=== PATIENT | female | born 1960 | race Two or more races ===

== ENCOUNTER 2017-05-30 05:42 | Inpatient (IN) | payer OTHER ==
[2017-05-17 13:34] LABS: BASOPHILS % (AUTO) 1.8 % (0.0-2.0); EOSINOPHILS % (AUTO) 1.3 % (0.0-3.0); HEMATOCRIT 41.7 % (37.0-47.0); HEMOGLOBIN 13.2 G/DL (12.0-16.0); LYMPHOCYTES % (AUTO) 27.8 % (20.0-45.0); MEAN CORPUSCULAR VOLUME 88 FL (80-99); MONOCYTES % (AUTO) 4.7 % (1.0-10.0); NEUTROPHILS % (AUTO) 64.4 % (45.0-75.0); PLATELET COUNT 330 K/UL (150-450); RED BLOOD COUNT 4.74 M/UL (4.20-5.40); RED CELL DISTRIBUTION WIDTH 13.2 % (11.6-14.8); WHITE BLOOD COUNT 8.3 K/UL (4.8-10.8)
[2017-05-17 13:38] LABS: APPEARANCE,URINE SLIGHTLY CLOUDY; BILIRUBIN, URINE NEGATIVE (NEGATIVE); COLOR,URINE PALE YELLOW; GLUCOSE, URINE (UA) NEGATIVE (NEGATIVE); KETONES,URINE NEGATIVE (NEGATIVE); LEUKOCYTE ESTERASE ,URINE 1+ (NEGATIVE); NITRITE,URINE NEGATIVE (NEGATIVE); PH,URINE 6 (4.5-8.0); PROTEIN,URINE NEGATIVE (NEGATIVE); UROBILINOGEN,URINE NORMAL MG/DL (0.0-1.0)
[2017-05-17 13:49] LABS: INR 0.9 (0.9-1.1)
[2017-05-17 14:12] LABS: ALANINE AMINOTRANSFERASE 19 U/L (12-78); ALBUMIN 3.9 G/DL (3.4-5.0); ALKALINE PHOSPHATASE 103 U/L (46-116); ANION GAP 9 mmol/L (5-15); ASPARTATE AMINO TRANSFERASE 22 U/L (15-37); BILIRUBIN,TOTAL 0.4 MG/DL (0.2-1.0); BLOOD UREA NITROGEN 17 mg/dL (7-18); CALCIUM 9.3 MG/DL (8.5-10.1); CARBON DIOXIDE 27 MMOL/L (21-32); CHLORIDE 102 MMOL/L (98-107); POTASSIUM 3.9 MMOL/L (3.5-5.1); SODIUM 138 MMOL/L (136-145)
--- NOTE | 2017-05-17 18:28 | Diagnostic Imaging Report ---
Indication: Cough Technique: XRAY Chest 2v Comparison: None Findings: Heart size and mediastinal contours are within normal limits. There is no focal airspace consolidation, pleural effusion or pneumothorax. No acute osseous abnormality seen. Surgical clips noted in the right upper quadrant. Impression: No radiographic evidence of acute cardiopulmonary disease.
[2017-05-30] VITALS (15 sets, daily range): BP systolic 99–133; BP diastolic 54–73
[~2017-05-30] VITALS: Ht 160 cm; Wt 79.4 kg
[2017-05-30] MEDS ORDERED: METFORMIN HCL500 M1 ORAL (06:42)
[2017-05-30] MEDS ORDERED: FLONASE SENSIM9.9 ML NS (06:42)
[2017-05-30] MEDS ORDERED: AMBIEN10 MG ORAL (06:42)
[2017-05-30] MEDS ORDERED: PRILOSEC OTC20 MG ORAL (06:42)
[2017-05-30] MEDS ORDERED: PROAIR HFA8.5 GM INH (06:42)
[2017-05-30] MEDS ORDERED: COLACE100 MG ORAL (06:42)
[2017-05-30] MEDS ORDERED: ZYRTEC10 MG ORAL (06:42)
[2017-05-30] MEDS ORDERED: ceFAZolin sod 2 GM in D5W 110 ML IVPB ONE (07:00)
--- NOTE | 2017-05-30 07:04 | Anethesia Preoperative Eval ---
Anesthesia Pre-op PMH/ROS General Date of Evaluation: May 30, 2017 Time of Evaluation: 08:06 Anesthesiologist: Ezekiel ASA Score: ASA 3 Mallampati Score Class I : Soft palate, uvula, fauces, pillars visible Class II: Soft palate, uvula, fauces visible Class III: Soft palate, base of uvula visible Class IV: Only hard plate visible Mallampati Classification: Class II Surgeon: Tila Diagnosis: Back Pain Surgical Procedure: L5-S1 Redo Laminectomy, Remove Hardware Anesthesia History: none Family History: no anesthesia problems Allergies: Coded Allergies: CODEINE (Verified Allergy, Severe, Shortness of Breath;itching, 05/30/17) MEPERIDINE (Verified Allergy, Severe, Itching, 05/30/17) Medications: see eMAR Past Medical History Pulmonary: Reports: asthma Gastrointestinal/Genitourinary: Reports: GERD HEENT: Reports: cataract (L), cataract (R) Other: obesity PSxH Narrative: Cholecystectomy, Abdominoplasty, Umbilical Hernia Repair, C/S Sx, L/S Sx, Breast Aug, Hysteroscopy, Laparoscopy Anesthesia Pre-op Phys. Exam Physician Exam Last Vital Signs Date Time Temp Pulse Resp B/P (MAP) Pulse Ox O2 Delivery O2 Flow Rate FiO2 05/30/17 06:14 97.1 65 18 127/73 98 Room Air Constitutional: NAD Neurologic: CN 2-12 intact Cardiovascular: RRR Respiratory: CTA Gastrointestinal: S/NT/ND Airway Exam Mallampati Score: Class II MO: limited ROM: limited Teeth: missing, intact Anesthesia Pre-op A/P Risk Assessment & Plan Assessment: ASA 3 Plan: GA, BIS, GlideScope Status Change Before Surgery: No Pre-Antibiotics Dru Grams Ancef IV Given Within 1 Hr of Incision: Yes Time Given: 08:26 Fab Falcon MD May 30, 2017 07:04
[2017-05-30] MEDS ORDERED: LR 1000ml 1,000 ML IVLG SCH (07:05)
--- NOTE | 2017-05-30 07:05 | Immediate Post-Op Evaluation ---
Immediate Post-Op Evalulation Immediate Post-Op Evalulation Procedure: L5-S1 Redo Laminectomy, Remove Hardware Date of Evaluation: May 30, 2017 Time of Evaluation: 12:20 IV Fluids: 1000 LR Blood Products: 0 Estimated Blood Loss: 100 Urinary Output: 300 Blood Pressure Systolic: 132 Blood Pressure Diastolic: 67 Pulse Rate: 84 Respiratory Rate: 16 O2 Sat by Pulse Oximetry: 100 Temperature (Fahrenheit): 98.4 Pain Score (1-10): 3 Nausea: No Vomiting: No Complications 0 Patient Status: awake, reacts, patent, extubated, none Hydration Status: adequate Dru Grams Ancef IV Given Within 1 Hr of Incision: Yes Time Given: 08:26 Fab Falcon MD May 30, 2017 07:05
[2017-05-30] MEDS ORDERED: Midazolam 2mg/2ml Inj IVP PRN (07:15)
[2017-05-30] MEDS ORDERED: DiphenhydrAMINE 50mg/ml Inj IVP PRN (07:15)
[2017-05-30] MEDS ORDERED: LORazepam Inj 2mg/ml 1ml IV PRN (07:15)
[2017-05-30] MEDS ORDERED: Ketorolac 30mg Inj IV PRN ×2 (07:15)
[2017-05-30] MEDS ORDERED: Acetaminophen (Non formulary) 100 ML IV ONE (07:15)
[2017-05-30] MEDS ORDERED: Labetalol 5mg/ml 20ml vial IV PRN (07:15)
[2017-05-30] MEDS ORDERED: fentaNYL 100 mcg/2 mL IV PRN (07:15)
[2017-05-30] MEDS ORDERED: Atropine Inj 1mg/10ml Syr IV PRN (07:15)
[2017-05-30] MEDS ORDERED: Hydromorphone 0.5mg/0.5ml inj IVP PRN (07:15)
[2017-05-30] MEDS ORDERED: Thrombin 5000 units TOPIC ONE ×2 (07:27→09:27)
[2017-05-30] MEDS ORDERED: Lidocaine 1% 10mg/ml/Epi 0.005mg/ml 30ml vial INJ ONE (07:27)
[2017-05-30] MEDS ORDERED: Vancomycin 1gm inj IVPB ONE (07:27)
[2017-05-30] MEDS ORDERED: Thrombin 5000 units spray kit TOPIC ONE (07:28)
[2017-05-30] MEDS ORDERED: Gelfoam Absorbable 1gm powder pkt TOPIC ONE (07:28)
[2017-05-30] MEDS ORDERED: Ropivacaine 5mg/ml Vial 30ml INJ ONE (07:28)
[2017-05-30] MEDS ORDERED: Bacitracin 50000 Units Vial ONE (07:28)
[2017-05-30] MEDS ORDERED: fentaNYL 100 mcg/2 mL IV ONE (08:00)
[2017-05-30] MEDS ORDERED: LR 1000ml ONE (08:00)
[2017-05-30] MEDS ORDERED: Sterile Water Irrig 1000ml IRRIG ONE (08:00)
[2017-05-30] MEDS ORDERED: Dexamethasone 4mg/ml vial ONE (08:00)
[2017-05-30] MEDS ORDERED: Propofol 1,000mg/ 100ml btl IV ONE (08:00)
[2017-05-30] MEDS ORDERED: NS Irrig 1000ml ONE (08:00)
[2017-05-30] MEDS ORDERED: Lidocaine 1% MPF 10mg/ml 5ml ONE (08:00)
[2017-05-30] MEDS ORDERED: Zemuron 50mg/5ml Inj IV ONE (08:00)
--- NOTE | 2017-05-30 08:17 | Pre-Procedure Note/Attestation ---
Pre-Procedure Note/Attestation Complete Prior to Procedure Procedure Narrative: HWR and skeletonization of nerve roots l5s1 Indications for Procedure Pre-Operative Diagnosis: sp spinal fusion L5s1 with radiculopathy Attestation I attest that I discussed the nature of the procedure; its benefits; risks and complications; and alternatives (and the risks and benefits of such alternatives ), prior to the procedure, with the patient (or the patient's legal entry level account representative). I attest that, if there was a reasonable possibility of needing a blood transfusion, the patient (or the patient's legal entry level account representative) was given the [facility] standardized written summary, pursuant to the Deion Beclabito Blood Safety Act ([place] Health and Safety Code # 1645, as amended). I attest that I re-evaluated the patient just prior to the surgery and that there has been no change in the patient's H&P, except as documented below: EVAN RINCON May 30, 2017 08:17
[2017-05-30] MEDS ORDERED: Bupivacaine 0.5% Inj 30 ml vial INJ ONE (08:56)
[2017-05-30] MEDS ORDERED: traMADol 50mg tab ORAL PRN (11:30)
--- NOTE | 2017-05-30 11:43 | Brief Operative Note ---
Immediate Post Operative Note Operative Note Pre-op Diagnosis: sp spinal fusion L5s1 with radiculopathy Procedure: HWR l5s1, redo laminectomy r L5s1 with lofton body resection, L pedicleectomy and skeletinozation nerve root L5s1 Post-op Diagnosis: same as pre-op Findings: consistent w/pre-op dx studies Surgeon: reji Svp Operations: jose BARAJAS Anesthesiologist: christie Anesthesia: general Specimen: yes - explant Complications: none Condition: stable Fluids: 1000 Estimated Blood Loss: volume - 100 Drains: hemovac Implant(s) used?: No EVAN RINCON May 30, 2017 11:43
[2017-05-30] MEDS ORDERED: Milk of Magnesia 30ml Ud ORAL PRN ×2 (14:00→18:15)
[2017-05-30] MEDS ORDERED: HYDROmorphone 1mg/ml Carpuject SUBQ PRN (14:00)
[2017-05-30] MEDS ORDERED: Norco 5mg/325mg tab ORAL PRN (14:00)
[2017-05-30] MEDS ORDERED: HYDROcodone/Acetamin 7.5/325 tab ORAL PRN ×2 (14:00)
--- NOTE | 2017-05-30 15:04 | Diagnostic Imaging Report ---
Indication: Right lower extremity pain, intraoperative imaging for hardware removal Technique: Intraoperative images Comparison: none Findings: No preintervention images are available. Final images demonstrate a surgical plate and a single screw projected at the L5-S1 level anteriorly. Impression: Intraoperative imaging, as described
[2017-05-30] MEDS: D5 1/2NS 1,000 ML IV SCH (15:12)
[2017-05-30] MEDS: ceFAZolin sod 1 GM in D5W 55 ML IV SCH (16:29)
--- NOTE | 2017-05-30 17:30 | Operative Note - Dictated ---
DATE OF OPERATION: 05/30/2017 SURGEON: Miguel Adorno M.D. LASER ENGRAVER: Chuy Ramirez PA-C. ANESTHESIOLOGIST: Fab Falcon M.D. ANESTHESIA TYPE: General endotracheal anesthesia. PREOPERATIVE DIAGNOSES: 1. Status post prior spinal fusion, anterior posterior L5-S1 with radiculopathy. 2. Bony overgrowth within the neural foramen, left side L5-S1. 3. Lateral recess and foraminal stenosis, right L5-S1. 4. Spondylolisthesis with spondylolysis. POSTOPERATIVE DIAGNOSES: 1. Status post prior spinal fusion, anterior posterior L5-S1 with radiculopathy. 2. Bony overgrowth within the neural foramen, left side L5-S1. 3. Lateral recess and foraminal stenosis, right L5-S1. 4. Spondylolisthesis with spondylolysis. PROCEDURES: 1. Removal of hardware L5-S1. 2. Redo laminectomy right side L5-S1 with Hawk body resection. 3. Left-sided redo laminectomy, subtotal pediculectomy (L5), and foraminotomy L5-S1. 4. Partial corpectomy through a transpedicular approach left L5-S1. 5. Use of fluoroscopy for localization. 6. Use of operating microscope. 7. Neurodiagnostic monitoring. ESTIMATED BLOOD LOSS: 100 mL. COMPLICATIONS: None. HEMOVAC: Hemovac x1 placed. INDICATIONS: The patient is a very pleasant woman with status post anterior posterior fusion L5-S1. She developed a bony overgrowth within the neural foramen, left side L5-S1. She has radicular pain both lower extremities. There is lateral recess stenosis, right L5-S1. She was counseled with regards to her alternatives and she elected to proceed with surgical decompression and hardware removal. The patient understood, wished to proceed. INTRAOPERATIVE FINDINGS: Excessive amount of very dense and tough scar formation. RISK NOTE: The patient was explained in detail risks and benefits of surgery to include, but not be limited to, those of bleeding, infection, damage to nerves, vessels, tendons, anesthetic risk, allergic reaction, aspiration, and possibly . The patient understood and wished to proceed. OPERATIVE PROCEDURE IN DETAIL: The patient was taken to the operative suite. After general endotracheal anesthesia was obtained, she was turned prone onto a radiolucent frame with the Corey frame. Please note that a Leonard catheter was placed post intubation. All bony prominences were well padded. The back was prepped and draped in usual sterile fashion. Prior back incision was re-incised. Excessive amount of scar tissue formation was noted, which made the exposure very difficult. At this point, an oblique approach was then obtained as the normal anatomic landmarks could not be appreciated. The oblique exposure was taken to the area of the pedicle screw heads. Bilateral pedicle screw heads were then dissected free, visualized and were systematically removed by removing the locking cap the remy and subsequently the L5 and S1 rods bilaterally. At this point, the right side was packed off. Attention was turned onto the left side. An excessive amount of scar was encountered in the area of the lateral recess. The bony landmarks of the L5 pedicle were then chosen and circumferentially the pedicle was dissected free of scar material. At this point, dissection was carried out along the lateral, medial, and inferior portion of the pedicle using meticulous micro technique. The pedicle was then drilled down and essentially collapsed (eggshelled) in onto itself. Therefore, through a transpedicular approach, the pedicle of L5 allowed us to then identify a portion of the vertebral body and from an anterior to the nerve root approach used a down pushing curette and removed the bone graft given the area of the neural foramen. The exiting nerve roots L5 on the left was probed free. Medially it was still encased in dense excess amount of scar, however, it was felt to be dangerous to mobilize the scar further medially. At this point, once satisfied with the decompression, copious irrigation was performed. FloSeal was applied. At this point, the area was packed off. Attention was turned towards the right side and the scar tissue was mobilized off of the remnant of the lamina. The lamina on the right side was inspected and was noted to be hypermobile, which likely was the cause of her pain. This was consistent with prior pars defect. At this point, the lamina was thinned out using a high-speed drill and with meticulous micro technique, the plane off of the dura was identified and elevated. The lamina as well as the Hawk body was removed in a very meticulous and piecemeal fashion. Once all the foraminotomy on the right as well as laminectomy on the right was performed, copious irrigation was performed. Valsalva demonstrated no evidence of dural leak. Finally, the decision was made to close after meticulous hemostasis was obtained. Hemovac drain was placed deep to the fascia. The fascia was repaired using #1 Vicryl. Subcutaneous closure using 2-0 Vicryl. Dermabond and sterile dressing. Upon completion, the patient was awaiting extubation at the time of this dictation. Sponge and needle counts were correct. [facility] Lexi Adorno DR: MEGAN JOB#: [id number] CC: SAL
[2017-05-30] MEDS: Docusate Sod/Senna tab ORAL SCH (17:57)
[2017-05-30] MEDS ORDERED: Chloraseptic Spray 20mL Bottle ORAL ONE (18:10)
[2017-05-30] MEDS ORDERED: HYDROcodone/Acetamin 10/325 tab ORAL PRN ×2 (18:15→18:45)
[2017-05-30] MEDS ORDERED: Chloraseptic Spray 20mL Bottle ORAL PRN (18:15)
[2017-05-30] MEDS: HYDROcodone/Acetamin 10/325 tab ORAL PRN (21:00)
[2017-05-31] VITALS: BP 90/50
[2017-05-31] MEDS: ceFAZolin sod 1 GM in D5W 55 ML IV SCH ×2 (00:37→09:32)
[2017-05-31] MEDS: D5 1/2NS 1,000 ML IV SCH ×2 (00:38→09:31)
[2017-05-31] MEDS: Zolpidem 5mg tab ORAL PRN (00:41)
--- NOTE | 2017-05-31 01:00 | Consultation ---
DATE OF CONSULTATION: 05/30/2017 CONSULTING PHYSICIAN: Lenny Sofia M.D. REFERRING PHYSICIAN: Miguel Adorno M.D. REASON FOR CONSULTATION: Acute pain consult. HISTORY OF PRESENT ILLNESS: Dear Dr. Miguel Adorno: Thank you kindly for consulting me to evaluate and render an opinion as to how to proceed in the management of the patient's acute postoperative lumbar spine pain after her revision lumbar spine instrumentation surgery today. The patient is a 56-year-old woman, who complained of significant postoperative pain after her revision lumbar spine surgery today with removal of hardware and exploration. The patient has a long history of lumbar spine pain after her work-related injury. She also has fibromyalgia and migraine headaches. You consulted me for acute pain consultation. I saw the patient at the bedside where I performed a detailed history and physical examination. I spent over 75 minutes in consultation with an additional 30 minutes in medical record review. I reviewed multiple records from today's date of surgery at [facility], 05/30/2017, including consent for surgical treatment, consent for anesthesia, consent for blood products, medication administration record, medication reconciliation order form, PACU record, PACU orders, guidelines for prophylactic antibiotics, guidelines for DVT prophylaxis, postoperative spine surgical orders, and postoperative surgery report by Dr. Adorno, anesthesia record, pre and post anesthesia evaluation record. Further record review include utilization review and surgical authorization by the insurance carrier, [facility]. Further record review included preoperative history and physical by Dr. Keene, 05/17/2017, along with diagnostic testing including a 12-lead EKG, chest x-ray, and laboratory studies. PAST MEDICAL HISTORY: 1. Acute postoperative lumbar spine pain, status post lumbar spine revision surgery with instrumentation by Dr. Miguel Adorno, 05/2017. 2. Work-related injury. 3. Mild obesity. 4. Fibromyalgia. 5. Migraine headaches. PAST SURGICAL HISTORY: 1. Previous lumbar spine surgery with instrumentation. 2. Cervical spine instrumentation surgery x2 in 2000 and 2002. 3. section x2. 4. Cholecystectomy. 5. Umbilical hernia repair. 6. Ventral hernia repair. 7. Nasal sinus surgery 25 years ago. FAMILY HISTORY: Hypertension, diabetes, and coronary artery disease. SOCIAL HISTORY: The patient quit tobacco over 30 years ago. She drinks alcohol socially. She is a daily coffee drinker. ALLERGIES: Codeine, gabapentin, and Lyrica. The patient did have a questionable history of hydrocodone allergy, with mild itching. The patient has been tolerating hydrocodone without any adverse side effects. MEDICATIONS: Current medications at home, NSAIDs, Ambien, Flonase, metformin, Prilosec, inhalers, Zyrtec, and Voltaren. REVIEW OF SYSTEMS: Per Dr. Keene. PHYSICAL EXAMINATION: VITAL SIGNS: Age 56, height 5 feet 3 inches, weight 180 pounds, body-mass index 32. She is afebrile, pulse 68, respirations 20, blood pressure 119/67, and oxygen saturation 99% on room air. HEENT: Normocephalic, atraumatic. NEUROLOGIC: Grossly intact with 5/5 dorsiflexion, 5/5 plantar flexion in the bilateral lower extremity. ABDOMEN: Obese. Positive bowel sounds. BACK: Lumbar spine is pain by incision area with minimal paraspinal muscle spasms appreciated. The Hemovac drain holding suction. CARDIOPULMONARY: Within normal limits, and per Dr. Keene. GENITOURINARY: Deferred. LABORATORY AND DIAGNOSTIC DATA: Diagnostic testing, a 12-lead EKG, normal sinus rhythm, ventricular rate 64. Preoperative chest x-ray shows no acute cardiopulmonary disease, 05/17/2017. Laboratory studies on 05/17/2017 shows white count 8, hematocrit 42, and platelets 330,000. Sodium 138, potassium 3.9, chloride 102, bicarbonate 27, BUN 17, creatinine 1.0, glucose 122, and calcium 9.3. Total bilirubin 0.4, AST 22, ALT 19, total protein 7.9, albumin 3.9, alkaline phosphatase 103. INR 0.9, PTT 28. Urinalysis is negative. IMPRESSION: 1. Acute postoperative lumbar spine pain, status post lumbar spine revision surgery with instrumentation by Dr. Miguel Adorno, 05/2017. 2. Work-related injury. 3. Mild obesity. 4. Fibromyalgia. 5. Migraine headaches. TREATMENT RECOMMENDATIONS: I have devised the following analgesic plan to help with her pain control postoperatively. Despite her multiple allergies and previous concerns for intolerance for hydrocodone, the patient has tolerated hydrocodone with only mild itching. I have added p.r.n. doses of Atarax as well as Benadryl as anti-itching agents and I will continue hydrocodone dosing with 10/325 tablets one orally every three hours p.r.n. for mild pain. The patient states that muscle relaxants have not been effective for her as they cause intolerable disorientation. I would hold off on the class of muscle relaxants at this time. She does have history of fibromyalgia, which often causes increased discomfort postoperatively and thus slow recovery. She has chronic headaches. I have added a dose of Fioricet one tablet orally every eight hours p.r.n. for headache complaint. She is a daily coffee drinker and I encouraged her to have her daily drink of coffee to avoid any caffeine-withdrawal headache symptoms, which may cloud other postoperative complaints. I have ordered a dose of subcutaneous Dilaudid 1 mg subcutaneously every three hours p.r.n. for severe breakthrough pain. The patient does admit to opioid-induced constipation after her previous surgeries. She has been started on Yue-Colace already and I have ordered p.r.n. dose of milk of magnesia, and I have asked the nursing team to place prune juice at the bedside. I have asked the nurses to place a bottle of Chloraseptic spray at the bedside as well to help with postoperative sore throat complaints after her general anesthesia intubation. She does use Ambien often at night and I have restarted 10 mg dose nightly p.r.n. for insomnia. I will try to hold off on the class of benzodiazepine at this time in this moderately obese woman, to avoid potentiation for respiratory depression, which may develop while already on opioid or narcotics. I did provide the daughter a prescription for [place] #60 tablets for outpatient usage and I have asked her to drop it off at a local pharmacy as soon as available, to avoid any delays including the prescription, which might delay her hospital discharge. I have ordered incentive spirometer to encourage good pulmonary toilet and help reduce the risk of postoperative pneumonia and atelectasis. The patient does have sequential compression pneumatic devices in place for DVT prophylaxis. Lenny Sofia M.D. DR: ROSA JOB#: [id number] CC:
[2017-05-31 04:00] VITALS: BP 101/56
[2017-05-31] MEDS: HydrOXYzine tab 25 MG TAB ORAL PRN ×3 (07:05→23:40)
[2017-05-31] MEDS: HYDROmorphone 1mg/ml Carpuject SUBQ PRN ×2 (07:06→20:40)
[2017-05-31 08:39] VITALS: BP 98/49
--- NOTE | 2017-05-31 08:43 | Orthopedic Spine Progress Note ---
Ortho Spine - Progress Note Subjective Symptoms: c/o post-op back pain, improved - as compared to pre-op Objective Vital Signs: Last 24 Hour Vital Signs Date Time Temp Pulse Resp B/P (MAP) Pulse Ox O2 Delivery O2 Flow Rate FiO2 05/31/17 08:39 97.2 52 18 98/49 93 Room Air 05/31/17 07:36 97.7 05/31/17 04:00 97.7 63 18 101/56 97 Room Air 05/31/17 00:00 97.8 52 18 90/50 98 Room Air 05/30/17 22:00 98.4 05/30/17 20:00 98.4 51 18 99/54 97 Room Air 05/30/17 16:30 98.0 68 20 119/67 99 Room Air 05/30/17 14:30 97.0 66 18 118/67 99 Room Air 05/30/17 14:10 98.0 05/30/17 14:00 68 17 112/64 99 Nasal Cannula 3.0 05/30/17 13:30 98.1 64 20 115/67 98 05/30/17 13:29 98.0 70 18 110/63 99 Nasal Cannula 3.0 05/30/17 13:20 65 15 114/61 99 Nasal Cannula 3.0 05/30/17 13:10 69 16 112/55 99 Nasal Cannula 3.0 05/30/17 13:00 70 15 110/54 99 Nasal Cannula 3.0 05/30/17 12:45 74 17 107/59 99 Nasal Cannula 3.0 05/30/17 12:30 62 18 110/56 99 Simple Mask 6.0 05/30/17 12:20 72 12 132/70 99 Simple Mask 6.0 05/30/17 12:15 87 15 130/67 97 Simple Mask 6.0 05/30/17 12:10 84 16 100 05/30/17 12:09 98.4 91 13 133/68 97 Simple Mask 6.0 I&O: Intake and Output 05/30/17 05/31/17 19:00 07:00 Intake Total 1715 ml 1195 ml Output Total 460 ml Balance 1255 ml 1195 ml Intake Oral 360 ml 240 ml IV Total 1355 ml 955 ml Output Urine Total 300 ml Drainage Total 60 ml Estimated Blood Loss 100 ml # Voids 1 4 Wound: clean, dry, intact Drains: hemovac Neuro Status: normal Assessment Procedure Performed: HWR l5s1, redo laminectomy r L5s1 with lofton body resection, L pedicleectomy and skeletinozation nerve root L5s1 Plan Plan: PT, pain management, continue drain, discharge plan EVAN RINCON May 31, 2017 08:43
[2017-05-31] MEDS: Docusate Sod/Senna tab ORAL SCH ×2 (08:58→17:40)
--- NOTE | 2017-05-31 10:55 | 48 Hour Post Anesthesia Eval ---
Post Anesthesia Evaluation Procedure: L5-S1 Redo Laminectomy, Remove Hardware Date of Evaluation: May 31, 2017 Time of Evaluation: 10:53 Blood Pressure Systolic: 98 0: 49 Pulse Rate: 52 Respiratory Rate: 18 Temperature (Fahrenheit): 97.2 O2 Sat by Pulse Oximetry: 93 Airway: patent Nausea: No Vomiting: No Pain Intensity: 2 Hydration Status: adequate Cardiopulmonary Status: Stable Mental Status/LOC: patient returned to baseline Follow-up Care/Observations: 0 Post-Anesthesia Complications: 0 Follow-up care needed: N/A Fab Falcon MD May 31, 2017 10:55
[2017-05-31 12:00] VITALS: BP 93/54
[2017-05-31] MEDS: metFORMIN 500mg tab ORAL SCH (12:49)
[2017-05-31] MEDS: HYDROcodone/Acetamin 10/325 tab ORAL PRN (15:26)
[2017-05-31] MEDS ORDERED: Magnesium Citrate Liq Btl ORAL ONE (15:33)
[2017-05-31 16:00] VITALS: BP 94/58
--- NOTE | 2017-05-31 17:30 | Progress Note ---
DATE: 05/31/2017 ACUTE PAIN MANAGEMENT PHYSICIAN PROGRESS NOTE Medication administration record reviewed. Medications include Yue-Colace, Protonix, Zyrtec, Glucophage. P.r.n. medications include Tylenol, Fioricet, Benadryl, Atarax, Chloraseptic, Catapres, Tyrone, Dilaudid, milk of magnesia, Mylanta, Zofran, Phenergan, and Ambien. LABORATORY STUDIES: No interval laboratory studies. VITAL SIGNS: Pain level 6/10 on the visual analog pain scale, afebrile, pulse 63, respirations 20, blood pressure 93/54, and oxygen saturation 95% on room air. I saw the patient at bedside with the nurse RN, Licha. The surgeon, Dr. Adorno, had evaluated the patient earlier this morning. The patient has been ambulating greater than 200 feet. Her pain is relatively well controlled alternating between the p.r.n. doses of oral Tyrone and subcutaneous Dilaudid. The patient is having some side effects of itching. However, the Atarax and Benadryl are helping somewhat. The patient does have a history of significant constipation with opioids, and this hospitalization is no different. She has already been drinking significant prune juice, along with the ordered Yue-Colace from the surgeon. I have instructed the nurse to dose the patient with Dulcolax suppository and to leave the bottle of magnesium citrate at the bedside and hopefully, these agents will effect a bowel movement with time without the need for a Fleet enema. The patient denies any headache symptoms. I left the prescription with the patient's daughter late last night for outpatient Tyrone. The daughter already dropped it off at a local pharmacy to expedite dispensing. I will defer the patient's diabetic medications to Dr. Keene, and continue her current analgesic regimen. Her Hemovac drains remained in place, and we will re-evaluate the output in the morning. Lenny Sofia M.D. DR: CHIVO JOB#: [id number] CC:
[2017-05-31 20:06] VITALS: BP 97/55
[2017-05-31] MEDS ORDERED: Magnesium Citrate Liq Btl ORAL PRN (21:00)
[2017-06-01 00:40] VITALS: BP 87/58
[2017-06-01 01:18] VITALS: BP 109/60
[2017-06-01] MEDS: Zolpidem 5mg tab ORAL PRN (01:28)
[2017-06-01 04:00] VITALS: BP 104/71
[2017-06-01] MEDS: HYDROmorphone 1mg/ml Carpuject SUBQ PRN ×2 (04:40→11:32)
[2017-06-01 08:00] VITALS: BP 91/61
[2017-06-01] MEDS ORDERED: NORCO 10-325 T1 EACH ORAL (09:22)
[2017-06-01] MEDS: metFORMIN 500mg tab ORAL SCH (09:30)
--- NOTE | 2017-06-01 09:35 | Orthopedic Spine Progress Note ---
Ortho Spine - Progress Note Subjective Symptoms: c/o post-op back pain, improved - as compared to pre-op Objective Vital Signs: Last 24 Hour Vital Signs Date Time Temp Pulse Resp B/P (MAP) Pulse Ox O2 Delivery O2 Flow Rate FiO2 06/01/17 08:00 99.0 84 19 91/61 96 06/01/17 06:32 98.3 06/01/17 04:00 99.1 93 19 104/71 93 06/01/17 01:18 109/60 06/01/17 00:40 98.3 65 18 87/58 99 05/31/17 20:06 97.6 62 18 97/55 100 05/31/17 16:25 97.3 05/31/17 16:00 98.0 59 20 94/58 95 Room Air 05/31/17 16:00 95 Room Air 05/31/17 12:00 97.3 63 20 93/54 95 Room Air 05/31/17 12:00 95 Room Air 05/31/17 10:55 52 18 93 I&O: Intake and Output 05/31/17 06/01/17 19:00 07:00 Intake Total 1540 ml 840 ml Output Total 40 ml 40 ml Balance 1500 ml 800 ml Intake Oral 840 ml 840 ml IV Total 700 ml Drainage Total 40 ml 40 ml # Voids 4 # Bowel Movements 1 Wound: clean, intact Drains: none Neuro Status: normal Assessment Procedure Performed: HWR l5s1, redo laminectomy r L5s1 with loftno body resection, L pedicleectomy and skeletinozation nerve root L5s1 Plan Plan: PT, pain management, discharge to home EVAN RINCON Jun 01, 2017 09:35
[2017-06-01] MEDS: HydrOXYzine tab 25 MG TAB ORAL PRN (11:32)
[2017-06-01 12:00] VITALS: BP 103/65
[2017-06-01] MEDS ORDERED: D5 1/2NS 1000ml IV ONE (13:26)
--- NOTE | 2017-06-01 15:00 | Progress Note ---
DATE: 06/01/2017 ACUTE PAIN MANAGEMENT PHYSICIAN PROGRESS NOTE MEDICATIONS: Medication administration record reviewed. Medications include Ambien, Yue-Colace, Phenergan, Chloraseptic spray, Protonix, Zofran, Glucophage, milk of magnesia, magnesium citrate, Toradol, Atarax, Dilaudid, Murphy, Benadryl, Catapres, Zyrtec, Dulcolax, Mylanta, Fioricet, and Tylenol. LABORATORY STUDIES: No interval laboratory studies. VITAL SIGNS: Within normal limits. Afebrile, pulse 93, respirations 18, blood pressure 104/71, and oxygen saturation 93% on room air. I saw the patient at the bedside with the nurse RNeJnnifer. The patient has been doing extremely well. Yesterday, she had a very large bowel movement after using the laxatives, which I ordered including magnesium citrate. Her itching complaints still remain mild. The patient asked for a prescription for Atarax, I recommended her to discontinue the outpatient [id number] Benadryl. I did leave the patient with a prescription for Murphy already, which her daughter has dropped-off at local pharmacy. In the hospital, the patient continues to request breakthrough Dilaudid intermittently. She has no nausea symptoms. She denies any shortness of breath or chest pain. The patient is ambulating quite well. She is compliant using her incentive spirometer. The patient denies any headaches or anxiety. Output from the indwelling lumbar spine drain catheter overnight was 40 mL. With the nurse RNJennifer at the bedside, the patient was turned to the left lateral decubitus position. I removed the lumbar spine dressing revealing lumbar spine incision clean and dry with Telfa in-place. I examined the indwelling lumbar spine drain catheter, drain-site. The area was clean and dry with no evidence for erythema or exudate. The Steri-Strips holding in the indwelling drain were removed. Then, at the end-expiration with the Hemovac drain taken off of suction, I personally removed the indwelling lumbar spine drain catheter. The tip was intact. Alcohol swab was applied generously to the drain hole site. Sterile 2 x 2 gauze was then applied over the drain site with clear Tegaderm dressings over the drain hole site and the incision. There were no complications. Lenny Sofia M.D. DR: YOVANY JOB#: [id number] CC:
--- NOTE | 2017-06-02 10:48 | Discharge Summary ---
Discharge Summary Hospital Course Date of Admission May 30, 2017 at 05:42 Date of Discharge Jun 01, 2017 at 13:27 Admitting Diagnosis HPI Graciela Spears is a 56 year old female who was admitted on May 30, 2017 at 05: 42 for L5-S1 Spondylolisthesis/ Labs, Chest X Ray Hospital Course [id number] Discharge Discharge Disposition Patient was discharged to Home (01) Discharge Diagnoses: Evonne Francis NP Jun 02, 2017 10:48
--- NOTE | 2017-06-02 22:30 | Discharge Summary 2 SIG ---
DATE OF ADMISSION: 05/30/2017 DATE OF DISCHARGE: 06/01/2017 VEHICLE OPERATOR TECHNICIAN: Lenny Sofia M.D. BRIEF HOSPITAL COURSE: The patient is a 56-year-old female who had a long history of lumbar spine pain after a work-related injury. She is status post anterior posterior fusion L5-S1. 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 There is lateral recess stenosis on the right L5-S1. She was counseled with regards to her alternatives and she elected to proceed with surgical decompression and hardware removal. She was admitted on 05/30/2017 and underwent removal of hardware on L5-S1 with a redo laminectomy on the right L5-S1 with Hawk body resection. Postoperatively, she was seen by Dr. Sofia for pain management. She has multiple allergies to pain medication. She had previous concerns for intolerance for hydrocodone, however, was able to tolerate only with mild itching. She was given Atarax and Benadryl p.r.n. and was continued on hydrocodone 10/325 q.3 hours p.r.n. mild pain and Dilaudid 1 mg subcutaneous q.3 hours p.r.n. breakthrough pain. She admitted to having history of opioid-induced constipation. She was restarted on Yue-Colace and was given prune juice. She was encouraged use of incentive spirometry and was placed on SCDs for DVT prophylaxis. She was seen by physical therapy. Following day, there was 40 mL on the indwelling lumbar spine drain. Hemovac drain was removed. The patient had good pain control and was ambulating well. She was eventually discharged home. FINAL DIAGNOSES: 1. 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 2. Status post hardware removal at L5-S1; redo laminectomy right L5-S1, and left-sided redo laminectomy and foraminotomy L5-S1. Please refer to operative report. DISCHARGE DISPOSITION: The patient was discharged home. DISCHARGE MEDICATIONS: Continue with [place] 10/325 one tab q.4 hours p.r.n. pain. DISCHARGE INSTRUCTIONS: Followup with Dr. Adorno in a week. Miguel Adorno M.D. I have been assigned to dictate discharge summary on this account and I was not involved in the patient's management. Evonne Francis N.P. DR: TAWNYA JOB#: [id number] CC:
== END 2017-06-01 13:27 | disposition home or self-care (01) | DRG 517 ==
LOC: SDSOVERFLO 05:42 → 3E 13:45
PROC: 0SP304Z Removal of Internal Fixation Device from Lumbosacral Joint, Open Approach (ICD-10-PCS; principal; 2017-05-30 08:00)
PROC: 01NB0ZZ Release Lumbar Nerve, Open Approach (ICD-10-PCS; principal; 2017-05-30 08:00)
DX: M47.27 Other spondylosis with radiculopathy, lumbosacral region (principal); M48.07 Spinal stenosis, lumbosacral region; M89.38 Hypertrophy of bone, other site; M43.17 Spondylolisthesis, lumbosacral region; Z98.1 Arthrodesis status; M79.7 Fibromyalgia; X58.XXXS Exposure to other specified factors, sequela; Z87.891 Personal history of nicotine dependence; Z88.6 Allergy status to analgesic agent; Z88.8 Allergy status to other drugs, medicaments and biological substances
CPT/HCPCS: 36415; 71046; 72020; 76000; 80053; 81001; 85025; 85610; 85730; 86850; 86900; 86901; 87081; 94003; 94150; C9399; J2405